=== PATIENT | female | born 1950 | race Caucasian/White ===

== ENCOUNTER 2017-12-01 06:46 | Emergency (ER) | payer OTHER ==
[~2017-12-01 06:46] MED LIST: BUDESONIDE 0.5MG/2ML AMPUL.NEB NEB ONE; IPRATROPIUM/ALBUTEROL SULFATE 3 ML AMPUL.NEB NEB ONE
[2017-12-01] MEDS ORDERED: methylPREDNISolone SOD SUCC 40 MG/ML VIAL IVP ONE (06:48)
[2017-12-01] MEDS ORDERED: methylPREDNISolone SOD SUCC 40 MG/ML VIAL ONE (06:49)
--- NOTE | 2017-12-01 06:54 | ED Physician Documentation ---
General Adult - HISTORIAN Historian: patient - HPI Stated Complaint: SOB Chief Complaint: General Adult Additional Information: Woke this morning wheezing. Took 10 mg prednisone and a Duoneb w/o improvement. Known asthmatic with attacks as often as once a year. Multiple hospitalizations but never intubated. No fever. Pulse ox 88% on ambient air on arrival. No other modifying factors or associated signs. - ROS CONST: denies: fever - PAST HX Past History: asthma - SOCIAL HX Smoking History: non-smoker - FAMILY HX Family History: No - REVIEWED ASSESSMENTS Nursing Assessment Reviewed: Yes Vitals Reviewed: Yes <SHEILA GOLDBERG - Last Filed: 12/01/17 07:07> - VITAL SIGNS Vital Signs: Vital Signs Temp Pulse Resp BP Pulse Ox 98.1 F 98 H 38 H 121/62 86 L 12/01/17 06:50 12/01/17 06:50 12/01/17 06:50 12/01/17 06:50 12/01/17 06:50 <Marlin Powers - Last Filed: 12/01/17 10:52> - PAST HX Allergies/Adverse Reactions: Allergies Allergy/AdvReac Type Severity Reaction Status Date / Time olanzapine [From Zyprexa] Allergy Unknown Unverified 02/26/13 13:19 Home Medications: Ambulatory Orders Medication Instructions Recorded Albuterol Sulfate [Proair Hfa] 2 inhalation IH Q 4-6 HRS PRN #1 03/05/13 each Citalopram Hydrobromide [Celexa] 20 mg PO DAILY u2 03/05/13 Lovastatin 40 mg PO DAILY u2 03/05/13 Ranitidine HCl [Acid Broadcast Designer] 150 mg PO DAILY 12/01/17 Progress - Progress Progress: 0700, care to CHLOÉ Palmer <SHEILA GOLDBERG - Last Filed: 12/01/17 07:07> - Progress Progress: 0815: Discussed results. Still awaiting CBC - no pneumonia on chest xray -no fever (not likely infectious) She is feeling much better and she would like to go home at this time. She reports she has oxygen at home. She has meds for her neb. She understands she qualifies to be hospitalized but she is not wishing to be admitted today. Risks of this were discussed DG <Marlin Powers - Last Filed: 12/01/17 10:52> ED Results Lab/Radiology - Orders Orders: ED Orders Category Date Time Status CHEST 2VIEW [RAD] Stat Exams 12/01/17 Ordered CBC/PLATELET/DIFF Routine Lab 12/01/17 Ordered CMP [CMP] Routine Lab 12/01/17 Ordered Budesonide [Pulmicort] Med 12/01/17 06:40 Once 0.5 mg NEB BID ONE Ipratropium/Albuterol Sulfate [Duoneb] Med 12/01/17 06:40 Once 3 ml NEB NOW ONE methylPREDNISolone SOD SUCC [Solu-MEDROL] Med 12/01/17 06:48 Once 40 mg IVP NOW ONE methylPREDNISolone SOD SUCC [Solu-MEDROL] Med 12/01/17 06:49 Discontinued 80 mg .ROUTE .STK-MED ONE <SHEILA GOLDBERG - Last Filed: 12/01/17 07:07> - Lab Results Lab Results: Lab Results 12/01/17 Unknown Sodium 138 mmol/L mmol/L (136-145) Potassium 4.1 mmol/L mmol/L (3.5-5.1) Chloride 109 mmol/L H mmol/L (98-107) Carbon Dioxide 23 mmol/L mmol/L (22-30) BUN 18 mg/dL H mg/dL (7-17) Creatinine 0.60 mg/dL mg/dL (0.52-1.04) Estimated Creat Clear 143 Est GFR ( Amer) > 60 (60 - ) Est GFR (Non-Af Amer) > 60 (60 - ) Glucose 93 mg/dL mg/dL (74-106) Calcium 8.5 mg/dL mg/dL (8.4-10.2) Total Bilirubin 0.2 mg/dL mg/dL (0.2-1.3) AST 22 U/L U/L (15-46) ALT 37 U/L U/L (13-69) Alkaline Phosphatase 78 U/L U/L (38-126) Total Protein 6.5 g/dL g/dL (6.3-8.2) Albumin 3.8 g/dL g/dL (3.5-5.0) - Radiology Radiology Impressions: PA and lateral chest Clinical history: Shortness of breath. Asthma exacerbation. Wheezing. Findings: Examination of the chest in PA and lateral views with no prior films for comparison demonstrates the lungs to be hyperinflated with diminished lung markings in the upper lung zones consistent with changes of emphysema. There is minimal apical pleural thickening bilaterally. Monitor leads superimpose the chest. Impression: 1. Emphysema. 2. No active disease. Electronically signed on Dec 01, 2017 7:33:27 AM CDT by: Andrew Lees - Orders Orders: ED Orders Category Date Time Status CHEST 2VIEW [RAD] Stat Exams 12/01/17 Taken CBC REF Routine Lab 12/01/17 Received CMP [CMP] Routine Lab 12/01/17 Completed Budesonide [Pulmicort] Med 12/01/17 06:40 Discontinued 0.5 mg NEB BID ONE Ipratropium/Albuterol Sulfate [Duoneb] Med 12/01/17 06:40 Discontinued 3 ml NEB NOW ONE methylPREDNISolone SOD SUCC [Solu-MEDROL] Med 12/01/17 06:59 Discontinued 40 mg IM NOW ONE methylPREDNISolone SOD SUCC [Solu-MEDROL] Med 12/01/17 06:48 Discontinued 40 mg IVP NOW ONE methylPREDNISolone SOD SUCC [Solu-MEDROL] Med 12/01/17 06:49 Discontinued 80 mg .ROUTE .STK-MED ONE <Marlin Powers - Last Filed: 12/01/17 10:52> General Adult Physical Exam - PHYSICAL EXAM GENERAL APPEARANCE: severe distress EENT: eye inspection normal, ENT inspection normal NECK: normal inspection, supple RESPIRATORY: wheezes (high pitched. Markedly decreased air movement throughout) CVS: reg rate & rhythm, heart sounds normal, no murmur ABDOMEN: soft, normal bowel sounds BACK: normal inspection SKIN: warm/dry, normal color NEURO: CN's nml as tested, motor nml, sensation nml, cognition normal <SHEILA GOLDBERG Last Filed: 12/01/17 07:07> - PHYSICAL EXAM GENERAL APPEARANCE: no distress EENT: ENT inspection normal RESPIRATORY: no resp distress, wheezes (high pitched. Markedly decreased air movement throughout - right upper lobe with wheeze clearing in other lobes ), other (inspiratory volume improved ) CVS: reg rate & rhythm ABDOMEN: soft SKIN: warm/dry NEURO: CN's nml as tested <Marlin Powers - Last Filed: 12/01/17 10:52> Discharge <SHEILA GOLDBERG Filed: 12/01/17 07:07> Comments: 1. Duoneb as prescribed for neb treatments at home every 6 hours 2. Use home oxygen 3. Prednisone taper 20 mg x 4 days 10 mg by mouth x 4 days and 5 mg x 4 days 4. See PCP in 2-4 days 5. Return to ER for any increase shortness of breath or other concerns Decision to Admit: NO Date of Decison to Admit: 12/01/17 Decision Time: 08:26 <Marlin Powers - Last Filed: 12/01/17 10:52> Clincal Impression: Emphysema lung Qualifiers: Emphysema type: unilateral Qualified Code(s): J43.0 - Unilateral pulmonary emphysema [MacLeod's syndrome] Referrals: Astrid Urrutia MD [Primary Care Provider] - 2 Days Disposition: 01 HOME, SELF-CARE
[2017-12-01] MEDS ORDERED: methylPREDNISolone SOD SUCC 40 MG/ML VIAL IM ONE (06:59)
[2017-12-01 07:16] LABS: eGFR (Non-African) > 60
[2017-12-01] MEDS ORDERED: IPRATROPIUM/ALBUTEROL SULFATE 3 ML AMPUL.NEB NEB ONE (07:51)
--- NOTE | 2017-12-01 08:34 | Diagnostic Imaging Report ---
SHEILA GOLDBERG [facility] [address] [facility] [address] [address] Report Submission Date: Dec 01, 2017 7:33:27 AM CDT Patient Study Name: KALIN RUIZ Date: Dec 01, 2017 6:56:36 AM CDT Modality Type: DX Gender: F Description: CHEST : 48 Institution: [facility] Physician: SHEILA GOLDBERG PA and lateral chest Clinical history: Shortness of breath. Asthma exacerbation. Wheezing. Findings: Examination of the chest in PA and lateral views with no prior films for comparison demonstrates the lungs to be hyperinflated with diminished lung markings in the upper lung zones consistent with changes of emphysema. There is minimal apical pleural thickening bilaterally. Monitor leads superimpose the chest. Impression: 1. Emphysema. 2. No active disease. Electronically signed on Dec 01, 2017 7:33:27 AM CDT by: Andrew ROCHA
[2017-12-01 08:51] LABS: BASO % 0.6 % (0.0-1.5); EOS % 7.3 % (0.0-6.8); LYMPH ABS # 3.45 thou/uL (0.60-4.00); MCH. 31.4 pg (28.0-34.0); MCV 92.9 fL (80.0-100.0); MONOCYTE % 7.1 % (0.0-11.0); PLATELET COUNT 272 thou/uL (130-400)
[2017-12-01 09:01] VITALS: BP 111/56
== END 2017-12-01 08:50 | disposition home or self-care (01) ==
LOC: ED 06:46
DX: J43.0 Unilateral pulmonary emphysema [MacLeod's syndrome] (principal)
CPT/HCPCS: 71046; 80053; 85025; J2920; J7626; 94640; 96372; 96374; J1030; S1016

== ENCOUNTER 2017-12-02 05:53 | Inpatient (IN) | payer OTHER ==
[2017-12-02] MEDS ORDERED: BUDESONIDE 0.5MG/2ML AMPUL.NEB NEB ONE ×2 (05:58→06:00)
--- NOTE | 2017-12-02 06:11 | ED Physician Documentation ---
Asthma - HISTORIAN Historian: patient - HPI Stated Complaint: resp distress / COPD Chief Complaint: Upper Respiratory Symptoms Onset: other (several days ago ) Duration: continues in ED Initiating Event: out of meds Associated Symptoms:: trouble breathing, shortness of breath, hurts to breath, chest discomfort, chest tightness. denies: fever, sweating, productive cough, bloody sputum, chest pain, chest pressure Current Asthma Therapy: other (she has ipratroprium at home. Out of steroid inhaler ) Further Comments: yes (She was seen in ER for cough and wheeze. Refused admission. States this am a coughing spell made her very short on air. She is feeling tight and having shortness of air. She is slightly improved after her duoneb in ambulance. She has no other new complaints.) - ROS CONST: no problems - PAST HX Asthma: frequent attacks Lung Disease: COPD DVT/PE Risk Factors: none - SOCIAL HX Smoking History: cigarettes Alcohol Use: none Drug Use: none - VITAL SIGNS Vital Signs: Vital Signs Temp Pulse Resp BP Pulse Ox 111/56 12/01/17 08:50 - REVIEWED ASSESSMENTS Nursing Assessment Reviewed: Yes Vitals Reviewed: Yes <Marlin Powers - Last Filed: 12/02/17 07:09> - FAMILY HX Family History: other (unk) - VITAL SIGNS Vital Signs: Vital Signs Temp Pulse Resp BP Pulse Ox 98.2 F 64 24 157/73 100 12/02/17 07:01 12/02/17 07:01 12/02/17 07:01 12/02/17 07:01 12/02/17 07:01 <Axel Chacon - Last Filed: 12/02/17 15:09> - PAST HX Allergies/Adverse Reactions: Allergies Allergy/AdvReac Type Severity Reaction Status Date / Time olanzapine [From Zyprexa] Allergy Unknown Verified 12/02/17 06:49 Home Medications: Ambulatory Orders Medication Instructions Recorded Albuterol Sulfate [Proair Hfa] 2 inhalation IH Q 4-6 HRS PRN #1 03/05/13 each Citalopram Hydrobromide [Celexa] 20 mg PO DAILY u2 03/05/13 Lovastatin 40 mg PO DAILY u2 03/05/13 Ranitidine HCl [Acid Radial Arm Saw Operator] 150 mg PO DAILY 12/01/17 Progress - Progress Progress: 0625: inspiration is improved. mild decrease in wheezing. She is able to speak with oxygen on only. States the shortness of breath has decreased DG 0635: breathing effort is improved. Decreased shortness of air. Wheezing is improved. Air movement is improved. She states herself that the shortness of breath started to become more severe around 5 am DG 0705: care turned over to Dr Zarate DG <Marlin Powers - Last Filed: 12/02/17 07:09> - Progress Progress: admit to Dr. Melvin, COPD. <Axel Chacon - Last Filed: 12/02/17 15:09> ED Results Lab/Radiology - Radiology Radiology Impressions: Examination: Portable chest History: Evaluate lungs. SHORTNESS OF BREATH, COUGH (Hx) Comparison exam: 01 December 2017 Findings: Single view of the chest demonstrates a normal cardiac and mediastinal silhouette. Lung lal without focal infiltrate. No blunting of the costophrenic margins. Osseous structures are appropriate for age. Impression: No acute pulmonary process. Electronically signed on Dec 02, 2017 6:18:42 AM CDT by: Maxx Estrada - Orders Orders: ED Orders Category Date Time Status Assess pulse oximetry Q1H Care 12/02/17 05:58 Active CHEST 1VIEW [RAD] Stat Exams 12/02/17 Ordered CBC/PLATELET/DIFF Routine Lab 12/02/17 Ordered CMP Routine Lab 12/02/17 Ordered CREATINE KINASE Routine Lab 12/02/17 Ordered PT-INR Routine Lab 12/02/17 Ordered Budesonide [Pulmicort] Med 12/02/17 09:00 Ordered 0.5 mg NEB BID Oxygen Daily Oxygen 12/02/17 06:00 Ordered <Marlin Powers - Last Filed: 12/02/17 07:09> - Lab Results Lab Results: Lab Results 12/02/17 12/02/17 12/02/17 06:15 06:15 06:15 PT 10.1 Seconds Seconds (9.4-11.6) INR 0.96 (0.9-1.2) Sodium 139 mmol/L mmol/L (136-145) Potassium 4.1 mmol/L mmol/L (3.5-5.1) Chloride 107 mmol/L mmol/L (98-107) Carbon Dioxide 23 mmol/L mmol/L (22-30) BUN 17 mg/dL mg/dL (7-17) Creatinine 0.60 mg/dL mg/dL (0.52-1.04) Est GFR ( Amer) > 60 (60 - ) Est GFR (Non-Af Amer) > 60 (60 - ) Glucose 100 mg/dL mg/dL (74-106) Calcium 8.9 mg/dL mg/dL (8.4-10.2) Total Bilirubin 0.1 mg/dL L mg/dL (0.2-1.3) AST 18 U/L U/L (15-46) ALT 34 U/L U/L (13-69) Alkaline Phosphatase 82 U/L U/L (38-126) Creatine Kinase 70 U/L U/L (30-135) NT-Pro-B Natriuret Pep 118.4 pg/mL pg/mL (15.0-125.0) Total Protein 6.8 g/dL g/dL (6.3-8.2) Albumin 3.9 g/dL g/dL (3.5-5.0) - Orders Orders: ED Orders Category Date Time Status Assess pulse oximetry Q1H Care 12/02/17 05:58 Active CHEST 1VIEW [RAD] Stat Exams 12/02/17 Completed BNP [NT-proBNP] Stat Lab 12/02/17 06:15 Completed CBC REF Routine Lab 12/02/17 06:15 Received CMP Routine Lab 12/02/17 06:15 Completed CREATINE KINASE Routine Lab 12/02/17 06:15 Completed PT-INR Routine Lab 12/02/17 06:15 Completed 0.9 % Sodium Chloride [Normal Saline] 1,000 ml Med 12/02/17 06:25 Discontinued IV NOW Budesonide [Pulmicort] Med 12/02/17 05:58 Discontinued 0.5 mg NEB .STK-MED ONE Budesonide [Pulmicort] Med 12/02/17 09:00 Discontinued 0.5 mg NEB BID Budesonide [Pulmicort] Med 12/02/17 06:00 Discontinued 0.5 mg NEB NOW ONE Ipratropium/Albuterol Sulfate [Duoneb] Med 12/02/17 06:38 Discontinued 3 ml NEB NOW ONE Oxygen Daily Oxygen 12/02/17 06:00 Ordered Transfer Routine Transfer 12/02/17 Ordered <Axel Chacon - Last Filed: 12/02/17 15:09> Asthma Physical Exam - EXAM General Appearance: no acute distress, severe distress EENT: eye inspection normal, ENT inspection normal Respiratory: respiratory distress, splinting, wheezes, rhonchi, resp. fatigue (unable to speak 3 words. - post pulmicort improved with speaking and distress less ) CVS: reg rate & rhythm, heart sounds normal, equal pulses, no murmur Abdomen: non-tender, nml bowel sounds Skin: color nml, no rash Extremities: non-tender, normal range of motion, no evidence of injury, no edema Neuro/Psych: oriented x3, neuro intact, mood/affect nml <Marlin Powers - Last Filed: 12/02/17 07:09> Discharge Decision to Admit: [id number] Date of Decison to Admit: 12/02/17 Decision Time: 06:51 <Marlin Powers - Last Filed: 12/02/17 07:09> <Axel Chacon - Last Filed: 12/02/17 15:09> Clincal Impression: Severe chronic obstructive pulmonary disease Condition: Fair Disposition: ADMITTED INPATIENT
[2017-12-02] MEDS ORDERED: 0.9 % SODIUM CHLORIDE 1,000 ML IV ONE (06:25)
[2017-12-02] MEDS ORDERED: IPRATROPIUM/ALBUTEROL SULFATE 3 ML AMPUL.NEB NEB ONE (06:38)
--- NOTE | 2017-12-02 06:53 | Diagnostic Imaging Report ---
HUBERT BOBBY [facility] [address] [facility] [address] [place], [place]. [address] Report Submission Date: Dec 02, 2017 6:18:42 AM CDT Patient Study Name: KALIN RUIZ Date: Dec 02, 2017 5:58:13 AM CDT Modality Type: DX Gender: F Description: CHEST : 48 Institution: [facility] Physician: HUBERT BOBBY Examination: Portable chest History: Evaluate lungs. SHORTNESS OF BREATH, COUGH (Hx) Comparison exam: 01 December 2017 Findings: Single view of the chest demonstrates a normal cardiac and mediastinal silhouette. Lung lal without focal infiltrate. No blunting of the costophrenic margins. Osseous structures are appropriate for age. Impression: No acute pulmonary process. Electronically signed on Dec 02, 2017 6:18:42 AM CDT by: Maxx ROCHA
[2017-12-02 06:55] LABS: eGFR (Non-African) > 60
[2017-12-02 08:02] LABS: BASO % 0.1 % (0.0-1.5); EOS % 0.3 % (0.0-6.8); LYMPH ABS # 3.67 thou/uL (0.60-4.00); MCH. 30.7 pg (28.0-34.0); MCV 93.1 fL (80.0-100.0); MONOCYTE % 5.9 % (0.0-11.0); MONOCYTE ABS # 0.93 thou/uL (0.00-0.90); PLATELET COUNT 272 thou/uL (130-400)
[2017-12-02] MEDS ORDERED: methylPREDNISolone SOD SUCC 80 MG in 0.9 % SODIUM CHLORIDE 100 ML IV SCH (08:03)
[2017-12-02] MEDS ORDERED: methylPREDNISolone SOD SUCC 40 MG/ML VIAL ONE (08:17)
[2017-12-02] MEDS ORDERED: 0.9 % SODIUM CHLORIDE 100 ML IV ONE (08:18)
[2017-12-02] MEDS ORDERED: ALBUTEROL SULFATE 2.5 MG/3 ML AMPUL.NEB NEB PRN (08:39)
[2017-12-02] MEDS: CITALOPRAM HYDROBROMIDE 20 MG TABLET PO SCH (08:42)
[2017-12-02] MEDS: SALINE FLUSH 10 ML DISP.SYRIN IV SCH ×2 (08:43→21:07)
[2017-12-02] MEDS ORDERED: BUDESONIDE 0.5MG/2ML AMPUL.NEB NEB SCH (09:00)
--- NOTE | 2017-12-02 09:05 | History and Physical Report ---
History of Present Illnes - History of Present Illness Reason for Visit: dyspnea History of Present Illness: 67yo white female who developed some increase SOB and dyspnea. Douglass been wheezing. Has oxygen at home at [facility] at 2 liters. Had to start using oxygen during the day. Has allergies and believes that it started the problem. Patient states that she has a cough, productive of some yellow phlegm. No fever or chills noted. - Past Medical History Pulmonary: Asthma, COPD, Sleep Apnea - Past Surgical History Past Surgical History: Appendectomy, Other (BTL) - Past Social History Smoke: <1 pack per day (2 ppd) Alcohol: None Drugs: None Lives: With Family Domestic Violence: Negative - Health Maintenance Health Maintenance: Pneumococcal Vaccine Influenza Vaccine: No Pneumonia Vaccine: Yes Resuscitation Status: full code Review of Systems - Review of Systems Constitutional: negative: Fever, Chills Eyes: negative: vision change, conjunctivae inflammation, eyelid inflammation ENT: negative: Ear Pain, Ear Discharge, Nose Pain, Nose Discharge, Nose Congestion, Mouth Pain, Throat Pain Respiratory: Cough, Shortness of Breath, SOB with Excertion, Sputum, Wheezing. negative: Hemoptysis, Pleuritic Pain Cardiovascular: negative: Chest Pain, Palpitations, Orthopnea Gastrointestinal: negative: Nausea, Vomiting, Abdominal Pain, Melena, Hematochezia Genitourinary: negative: Dysuria, Frequency, Incontinence, Hematuria Musculoskeletal: negative: Neck Pain, Shoulder Pain Skin: negative: Rash Neurological: negative: Weakness, Numbness, Incoordination, Change in Speech - Medications/Allergies Allergies/Adverse Reactions: Allergies Allergy/AdvReac Type Severity Reaction Status Date / Time olanzapine [From Zyprexa] Allergy Unknown Verified 12/02/17 06:49 Current Inpatient Medications: Current Inpatient Medications Albuterol Sulfate (Ventolin) 2.5 mg NEB Q2H PRN PRN Reason: Wheezing Stop: 12/08/17 23:59 Albuterol/Ipratropium (Duoneb) 3 ml NEB Q4H [facility] Citalopram Hydrobromide (Celexa) 20 mg PO DAILY [facility] Last Admin: 12/02/17 08:42 Dose: 20 mg Famotidine (Pepcid) 20 mg PEG 0700 [facility] Methylprednisolone Sodium Succinate 80 mg/ Sodium Chloride 101.28 mls @ 101.28 mls/hr IV Q8H [facility] Stop: 12/08/17 23:59 Last Admin: 12/02/17 08:42 Dose: 101.28 mls/hr Simvastatin (Zocor) 20 mg PO HS [facility] Sodium Chloride (Normal Saline Flush) 3 ml IV BID [facility] Last Admin: 12/02/17 08:43 Dose: 3 ml Exam - Exam Vital Signs: Vital Signs (72 hours) 12/01/17 12/02/17 12/02/17 08:50 05:58 06:58 Temperature Pulse Rate [ Right Pulse ox] Respiratory Rate Blood Pressure 111/56 Blood Pressure 111/56 [Left Arm] O2 Sat by Pulse 100 100 Oximetry 12/02/17 12/02/17 12/02/17 07:00 07:01 07:50 Temperature 98.2 F 98.2 F Pulse Rate [ 64 109 H Right Pulse ox] Respiratory 24 26 H Rate Blood Pressure Blood Pressure 157/73 105/62 [Left Arm] O2 Sat by Pulse 96 100 98 Oximetry General: Alert, Oriented to Person, Oriented to Place, Oriented to Time, Cooperative HEENT: Atraumatic, PERRLA, EOMI, Mouth Mucous membr. moist/[place], Nose Mucous membr. moist/[place] Neck: Normal Range of Motion Carotids: WNL Thyroid: WNL Lungs: Speaks full Sentences, Wheezes, Rhonchi, Decreased Air Movement Cardiovascular: Normal S1, Normal S2, No murmurs, Tachycardia Abdomen: Normal bowel sounds, Soft, No tenderness, No hepatospenomegaly, No masses Integumentary: Normal, [place], Warm, Dry Extremities: No clubbing, No cyanosis, No edema, Normal pulses, No tenderness/swelling Neurological: Normal gait, Normal speech, Strength Equal Bilat, Normal tone, Sensation intact, Cranial nerves 3-12 NL, Reflexes 2+ Psych/Mental Status: Mental status NL, Mood NL, Appropriate Affect, Intact Judgment - Laboratory Results Laboratory Results: Laboratory Results 12/02/17 12/02/17 12/02/17 06:15 06:15 06:15 WBC Comment RBC Hemoglobin (Send Out) Hct (Send Out) MCV (Send Out) MCH MCHC (Send Out) RDW Coeff of [place] Plt Count Absolute Lymphs (auto) Absolute Monos (auto) Absolute Basos (auto) Neutrophils % Absolute Neutrophils Lymphocytes Monocytes Absolute Eosinophils Basophilia % Eosinophil Count PT 10.1 INR 0.96 Sodium 139 Potassium 4.1 Chloride 107 Carbon Dioxide 23 BUN 17 Creatinine 0.60 Est GFR ( Amer) > 60 Est GFR (Non-Af Amer) > 60 Glucose 100 Calcium 8.9 Total Bilirubin 0.1 L AST 18 ALT 34 Alkaline Phosphatase 82 Creatine Kinase 70 NT-Pro-B Natriuret Pep 118.4 Total Protein 6.8 Albumin 3.9 12/02/17 06:15 WBC Comment 15.77 H RBC 4.62 Hemoglobin (Send Out) 14.2 Hct (Send Out) 43.0 MCV (Send Out) 93.1 MCH 30.7 MCHC (Send Out) 33.0 RDW Coeff of [place] 13.4 Plt Count 272 Absolute Lymphs (auto) 3.67 Absolute Monos (auto) 0.93 H Absolute Basos (auto) 0.02 Neutrophils % 70.4 Absolute Neutrophils 11.10 H Lymphocytes 23.3 Monocytes 5.9 Absolute Eosinophils 0.05 Basophilia % 0.1 Eosinophil Count 0.3 PT INR Sodium Potassium Chloride Carbon Dioxide BUN Creatinine Est GFR ( Amer) Est GFR (Non-Af Amer) Glucose Calcium Total Bilirubin AST ALT Alkaline Phosphatase Creatine Kinase NT-Pro-B Natriuret Pep Total Protein Albumin Assessment/Plan - Assessment/Plan (1) Acute exacerbation of COPD with asthma Status: Chronic Assessment: Patient will be started on IV steroids, regular nebulized treatments, and antibiotic therapy for possible early infection. (2) Tobacco dependence Status: Chronic Assessment: Patient is not want a nicotine patch this time. (3) Depressive disorder Status: Acute Assessment: Continue home medications. (4) GERD without esophagitis Status: Chronic Assessment: Continue home medications. (5) Insomnia Status: Chronic VTE Assessment - RISK FACTOR SCORE VTE RISK FACTOR SCORES: AGE OVER 60 YEARS, ACUTE RESPIRATORY FAILURE/SEVERE COPD - RISK VTE MODERATE RISK: SCORE OF 2 (RISK PROXIMAL DVT 2-4%) PROPHYAXIS NEEDED
[2017-12-02 10:01] VITALS: BMI 31.7
[2017-12-02] MEDS: IPRATROPIUM/ALBUTEROL SULFATE 3 ML AMPUL.NEB NEB SCH ×4 (11:20→22:33)
[2017-12-02] MEDS: AZITHROMYCIN 500 MG in 0.9 % SODIUM CHLORIDE 250 ML IV SCH (12:30)
[2017-12-02] MEDS ORDERED: LEVOFLOXACIN 500MG/D5W 100ML 500 MG in PREMIX BAG 1 BAG IV SCH (13:10)
[2017-12-02] MEDS: NICOTINE 14mg PATCH.TD24 TD SCH (13:45)
[2017-12-02] MEDS: DEXTROSE 5% IV SCH ×4 (16:15→22:34)
[2017-12-02] MEDS: METHYLPREDNISOLONE SOD SUCC IV SCH ×4 (16:15→22:34)
[2017-12-02] MEDS: WATER IV SCH ×4 (16:15→22:34)
[2017-12-02] MEDS ORDERED: LEVOFLOXACIN 500MG/D5W 100ML 100 ML IV ONE (17:32)
[2017-12-02] MEDS: LEVOFLOXACIN 500MG/D5W 100ML 500 MG in PREMIX BAG 1 BAG IV SCH (17:41)
[2017-12-02] MEDS: SIMVASTATIN 20 MG TABLET PO SCH (20:08)
[2017-12-02] MEDS: ACETAMINOPHEN 500 MG TABLET PO PRN (20:11)
[2017-12-02] MEDS ORDERED: MELATONIN 3 MG TABLET PO SCH (21:00)
[2017-12-02] MEDS: GUAIFENESIN/CODEINE 10 ML S/F LIQUID DOSE CUP PO PRN (22:34)
[2017-12-03] MEDS: IPRATROPIUM/ALBUTEROL SULFATE 3 ML AMPUL.NEB NEB SCH ×6 (03:24→23:00)
[2017-12-03] MEDS: GUAIFENESIN/CODEINE 10 ML S/F LIQUID DOSE CUP PO PRN (03:27)
[2017-12-03] MEDS: DEXTROSE 5% IV SCH ×6 (06:40→20:35)
[2017-12-03] MEDS: WATER IV SCH ×6 (06:40→20:35)
[2017-12-03] MEDS: METHYLPREDNISOLONE SOD SUCC IV SCH ×6 (06:40→20:35)
[2017-12-03] MEDS: FAMOTIDINE 20 MG TABLET PEG SCH (06:40)
[2017-12-03 07:25] LABS: eGFR (Non-African) > 60
[2017-12-03] MEDS ORDERED: LEVOFLOXACIN 500MG/D5W 100ML 500 MG in PREMIX BAG 1 BAG IV SCH (09:00)
[2017-12-03] MEDS: NICOTINE 14mg PATCH.TD24 TD SCH (09:10)
[2017-12-03] MEDS: CITALOPRAM HYDROBROMIDE 20 MG TABLET PO SCH (09:10)
[2017-12-03] MEDS: SALINE FLUSH 10 ML DISP.SYRIN IV SCH ×2 (09:10→20:35)
[2017-12-03] MEDS: ACETAMINOPHEN 500 MG TABLET PO PRN ×2 (09:29→15:11)
[2017-12-03] MEDS: AZITHROMYCIN 500 MG in 0.9 % SODIUM CHLORIDE 250 ML IV SCH (10:53)
[2017-12-03 16:21] LABS: BASO % 0.1 % (0.0-1.5); EOS % 0.4 % (0.0-6.8); LYMPH ABS # 1.37 thou/uL (0.60-4.00); MCV 93.9 fL (80.0-100.0); MONOCYTE % 3.1 % (0.0-11.0); MONOCYTE ABS # 0.43 thou/uL (0.00-0.90); PLATELET COUNT 241 thou/uL (130-400)
[2017-12-03] MEDS ORDERED: ZOLPIDEM TARTRATE 5 MG TABLET PO PRN (17:28)
[2017-12-03] MEDS ORDERED: LEVOFLOXACIN 500MG/D5W 100ML 100 ML IV ONE (17:48)
[2017-12-03] MEDS: LEVOFLOXACIN 500MG/D5W 100ML 500 MG in PREMIX BAG 1 BAG IV SCH (18:00)
[2017-12-03] MEDS: SIMVASTATIN 20 MG TABLET PO SCH (20:24)
[2017-12-03] MEDS ORDERED: methylPREDNISolone SOD SUCC 40 MG/ML VIAL ONE (20:25)
[2017-12-04] MEDS: IPRATROPIUM/ALBUTEROL SULFATE 3 ML AMPUL.NEB NEB SCH ×5 (04:55→21:07)
[2017-12-04] MEDS: FAMOTIDINE 20 MG TABLET PEG SCH (06:09)
[2017-12-04] MEDS: SALINE FLUSH 10 ML DISP.SYRIN IV SCH ×2 (10:02→20:17)
[2017-12-04] MEDS: NICOTINE 14mg PATCH.TD24 TD SCH (10:02)
[2017-12-04] MEDS: CITALOPRAM HYDROBROMIDE 20 MG TABLET PO SCH (10:02)
[2017-12-04] MEDS: DEXTROSE 5% IV SCH ×4 (10:13→20:18)
[2017-12-04] MEDS: WATER IV SCH ×4 (10:13→20:18)
[2017-12-04] MEDS: METHYLPREDNISOLONE SOD SUCC IV SCH ×4 (10:13→20:18)
[2017-12-04] MEDS: AZITHROMYCIN 500 MG in 0.9 % SODIUM CHLORIDE 250 ML IV SCH (11:19)
[2017-12-04] MEDS: ACETAMINOPHEN 500 MG TABLET PO PRN ×2 (13:41→20:16)
[2017-12-04] MEDS ORDERED: LEVOFLOXACIN 500MG/D5W 100ML 100 ML IV ONE (16:19)
[2017-12-04] MEDS: LEVOFLOXACIN 500MG/D5W 100ML 500 MG in PREMIX BAG 1 BAG IV SCH (18:28)
[2017-12-04] MEDS: SIMVASTATIN 20 MG TABLET PO SCH (20:15)
[2017-12-04] MEDS ORDERED: ONDANSETRON HCL 4 MG TAB.RAPDIS PO PRN (20:16)
[2017-12-04] MEDS ORDERED: ZOLPIDEM TARTRATE 5 MG TABLET PO SCH (21:00)
[2017-12-05] MEDS: FAMOTIDINE 20 MG TABLET PEG SCH (06:04)
[2017-12-05] MEDS: NICOTINE 14mg PATCH.TD24 TD SCH (09:47)
[2017-12-05] MEDS: CITALOPRAM HYDROBROMIDE 20 MG TABLET PO SCH (09:47)
[2017-12-05] MEDS: IPRATROPIUM/ALBUTEROL SULFATE 3 ML AMPUL.NEB NEB SCH (09:48)
[2017-12-05 10:30] VITALS: BP 102/60
[2017-12-05] MEDS: AZITHROMYCIN 500 MG in 0.9 % SODIUM CHLORIDE 250 ML IV SCH (11:46)
[2017-12-05] MEDS: WATER IV SCH ×2 (11:47)
[2017-12-05] MEDS: DEXTROSE 5% IV SCH ×2 (11:47)
[2017-12-05] MEDS: METHYLPREDNISOLONE SOD SUCC IV SCH ×2 (11:47)
[2017-12-05] MEDS: SALINE FLUSH 10 ML DISP.SYRIN IV SCH (11:49)
--- NOTE | 2017-12-05 13:45 | Discharge Summary ---
Discharge Summary - Discharge Sumary Condition at Discharge: Stable Home Medications: Ambulatory Orders Medication Instructions Recorded Albuterol Sulfate [Proair Hfa] 2 inhalation IH Q 4-6 HRS PRN #1 03/05/13 each Citalopram Hydrobromide [CELEXA] 20 mg PO DAILY u2 03/05/13 Lovastatin 40 mg PO DAILY u2 03/05/13 Ranitidine HCl [Acid Wastewater Supervisor] 150 mg PO DAILY 12/01/17 Azithromycin 250 mg PO D #3 tablet 12/05/17 Budesonide 0.5 mg IH BID #60 ampul.neb 12/05/17 Levofloxacin [Levaquin] 500 mg PO D #7 tablet 12/05/17 Melatonin 5 - 10 mg PO HS PRN #60 tablet 12/05/17 NICOTINE 14mg [HABITROL 14mg] 1 patch TD DAILY patch.td24 12/05/17 Prednisone 10 mg PO DIRECTED #36 tablet 12/05/17 Consultations this Visit: None Procedures this Visit: None Allergies/Adverse Reactions: Allergies Allergy/AdvReac Type Severity Reaction Status Date / Time olanzapine [From Zyprexa] Allergy Unknown Verified 12/02/17 06:49 Discharge Summary: Patient was started on high flow nebulization treatments to four hours are doing and along with IV steroids. Within 12 hours patient breathing status has improved quite a bit but she remained short of breath and dyspnea with exertion. Patient did developed a productive cough of some green to yellow phlegm and was started on antibiotic therapy for possible developing bronchitis. Chest x-ray did not show any evidence of an infiltrate or pneumonia. Patient WBC count did drop from 15,000 to 13,000. Patient did developed some mild hyperglycemia related to his steroid use. Patient did have some problems with insomnia during her hospitalization. Patient was started on melatonin and switched to zolpidem. At the time of dismissal patient was breathing much better. There is just a few wheezes noted was fourth expiration. Patient did drop her oxygen saturation down to 87-88% on room air with ambulation. With oxygen it remained at 90 to 93%. It was felt that the patient was going to need some continuous oxygen at home at least for a short period of time. Patient did feel a little bit uneasy about going home and possibly pain at home by herself. Due to the patient COPD and change in oxygenation it was felt that home health might be beneficial for her. This was subsequently arranged. - Final Diagnosis (1) Acute exacerbation of COPD with asthma Problems: improved. Will continue on a prednisone taper. (2) Insomnia Problems: Melatonin 5-10mg q HS PRN (3) Tobacco dependence Problems: encouraged to stop smoking. Was given script for nicotine patches (4) Depressive disorder Problems: stable (5) GERD without esophagitis Problems: stable
--- NOTE | 2017-12-05 13:49 | Inpatient Progress Note ---
Subjective - Required Recertification Statement I anticipate X number of days because-include discharge plan: 1 - Review of Systems Events since last encounter: Patient states that she does continue to make some improvement with her breathing. Patient is starting to ambulate a little bit easier. Patient cough is about the same. Patient denies any chest pain or chest pressure. Patient stated her main problem at this time seemed to be her insomnia and lack of sleep Objective - Exam Vitals and I&O: Vital Signs Temp 98.7 F 12/05/17 10:26 Pulse 87 12/05/17 10:26 Resp 16 12/05/17 10:58 BP 102/60 12/05/17 10:26 Pulse Ox 90 L 12/05/17 10:57 Intake & Output 12/04/17 12/05/17 12/05/17 23:59 11:59 23:59 Intake Total 1490 530 Balance 1490 530 Intake: IV 690 10 Right Hand 10 left habd 690 Oral 800 520 Other: Voiding Method Toilet Toilet # Voids 1 3 General: Alert, Oriented to Person, Oriented to Place, Oriented to Time, Cooperative, No acute distress Lungs: Normal air movement, Speaks full Sentences, Wheezes (mild with expiratio n). No: Rales, Rhonchi Cardiovascular: Regular rate, Normal S1, Normal S2, No murmurs Abdomen: Normal bowel sounds, Soft, No tenderness Extremities: No clubbing, No cyanosis, No edema Skin: Normal, [place], Warm, Dry Neurological: Normal gait Psych/Mental Status: Mental status NL, Mood NL, Intact Judgment - Results Results: Laboratory Results WBC Comment 13.81 thou/uL (4.00-12.00) H 12/03/17 06:35 RBC 4.44 mil/uL (3.90-5.20) 12/03/17 06:35 Hemoglobin (Send Out) 14.2 g/dL (11.5-16.0) 12/03/17 06:35 Hct (Send Out) 41.7 % (34.5-46.5) 12/03/17 06:35 MCV (Send Out) 93.9 fL (80.0-100.0) 12/03/17 06:35 MCH 32.0 pg (28.0-34.0) 12/03/17 06:35 MCHC (Send Out) 34.1 g/dL (30.0-36.0) 12/03/17 06:35 RDW Coeff of Flaquito 13.4 % (11.3-14.7) 12/03/17 06:35 Plt Count 241 thou/uL (130-400) 12/03/17 06:35 Absolute Lymphs (auto) 1.37 thou/uL (0.60-4.00) 12/03/17 06:35 Absolute Monos (auto) 0.43 thou/uL (0.00-0.90) 12/03/17 06:35 Absolute Basos (auto) 0.01 thou/uL (0.00-0.50) 12/03/17 06:35 Neutrophils % 86.5 % (39.0-79.0) H 12/03/17 06:35 Absolute Neutrophils 11.95 thou/uL (1.50-7.70) H 12/03/17 06:35 Lymphocytes 9.9 % (16.0-50.0) L 12/03/17 06:35 Monocytes 3.1 % (0.0-11.0) 12/03/17 06:35 Absolute Eosinophils 0.06 thou/uL (0.00-0.60) 12/03/17 06:35 Basophilia % 0.1 % (0.0-1.5) 12/03/17 06:35 Eosinophil Count 0.4 % (0.0-6.8) 12/03/17 06:35 PT 10.1 Seconds (9.4-11.6) 12/02/17 06:15 INR 0.96 (0.9-1.2) 12/02/17 06:15 Sodium 138 mmol/L (136-145) 12/03/17 06:35 Potassium 3.8 mmol/L (3.5-5.1) 12/03/17 06:35 Chloride 106 mmol/L (98-107) 12/03/17 06:35 Carbon Dioxide 23 mmol/L (22-30) 12/03/17 06:35 BUN 13 mg/dL (7-17) 12/03/17 06:35 Creatinine 0.50 mg/dL (0.52-1.04) L 12/03/17 06:35 Estimated Creat Clear 189 12/03/17 06:35 Est GFR ( Amer) > 60 (60-) 12/03/17 06:35 Est GFR (Non-Af Amer) > 60 (60-) 12/03/17 06:35 Glucose 159 mg/dL (74-106) H 12/03/17 06:35 Calcium 8.9 mg/dL (8.4-10.2) 12/03/17 06:35 Total Bilirubin 0.2 mg/dL (0.2-1.3) 12/03/17 06:35 AST 20 U/L (15-46) 12/03/17 06:35 ALT 31 U/L (13-69) 12/03/17 06:35 Alkaline Phosphatase 68 U/L (38-126) 12/03/17 06:35 Creatine Kinase 70 U/L (30-135) 12/02/17 06:15 NT-Pro-B Natriuret Pep 118.4 pg/mL (15.0-125.0) 12/02/17 06:15 Total Protein 6.5 g/dL (6.3-8.2) 12/03/17 06:35 Albumin 3.9 g/dL (3.5-5.0) 12/03/17 06:35 Assessment/Plan - Assessment/Plan (1) Acute exacerbation of COPD with asthma Status: Acute Assessment: improved, will start to taper steroids (2) Insomnia Status: Chronic Assessment: will try to increase ambien (3) Tobacco dependence Status: Chronic (4) Depressive disorder Status: Chronic Assessment: stable (5) GERD without esophagitis Status: Chronic
--- NOTE | 2017-12-05 13:49 | Inpatient Progress Note ---
Subjective - Required Recertification Statement I anticipate X number of days because-include discharge plan: 2 days - Review of Systems Events since last encounter: Patient stated she seemed to be doing better at this time. However patient does have some dyspnea with exertion. Patient continues to have a cough of some yellow to clear phlegm. Nohemophysis has been noted. Patient denies any chest pain or chest pressure. Patient states that she is not sleeping well despite given Ambien. Objective - Exam Vitals and I&O: Vital Signs Temp 98.7 F 12/05/17 10:26 Pulse 87 12/05/17 10:26 Resp 16 12/05/17 10:58 BP 102/60 12/05/17 10:26 Pulse Ox 90 L 12/05/17 10:57 Intake & Output 12/04/17 12/05/17 12/05/17 23:59 11:59 23:59 Intake Total 1490 530 Balance 1490 530 Intake: IV 690 10 Right Hand 10 left habd 690 Oral 800 520 Other: Voiding Method Toilet Toilet # Voids 1 3 - Results Results: Laboratory Results WBC Comment 13.81 thou/uL (4.00-12.00) H 12/03/17 06:35 RBC 4.44 mil/uL (3.90-5.20) 12/03/17 06:35 Hemoglobin (Send Out) 14.2 g/dL (11.5-16.0) 12/03/17 06:35 Hct (Send Out) 41.7 % (34.5-46.5) 12/03/17 06:35 MCV (Send Out) 93.9 fL (80.0-100.0) 12/03/17 06:35 MCH 32.0 pg (28.0-34.0) 12/03/17 06:35 MCHC (Send Out) 34.1 g/dL (30.0-36.0) 12/03/17 06:35 RDW Coeff of Flaquito 13.4 % (11.3-14.7) 12/03/17 06:35 Plt Count 241 thou/uL (130-400) 12/03/17 06:35 Absolute Lymphs (auto) 1.37 thou/uL (0.60-4.00) 12/03/17 06:35 Absolute Monos (auto) 0.43 thou/uL (0.00-0.90) 12/03/17 06:35 Absolute Basos (auto) 0.01 thou/uL (0.00-0.50) 12/03/17 06:35 Neutrophils % 86.5 % (39.0-79.0) H 12/03/17 06:35 Absolute Neutrophils 11.95 thou/uL (1.50-7.70) H 12/03/17 06:35 Lymphocytes 9.9 % (16.0-50.0) L 12/03/17 06:35 Monocytes 3.1 % (0.0-11.0) 12/03/17 06:35 Absolute Eosinophils 0.06 thou/uL (0.00-0.60) 12/03/17 06:35 Basophilia % 0.1 % (0.0-1.5) 12/03/17 06:35 Eosinophil Count 0.4 % (0.0-6.8) 12/03/17 06:35 PT 10.1 Seconds (9.4-11.6) 12/02/17 06:15 INR 0.96 (0.9-1.2) 12/02/17 06:15 Sodium 138 mmol/L (136-145) 12/03/17 06:35 Potassium 3.8 mmol/L (3.5-5.1) 12/03/17 06:35 Chloride 106 mmol/L (98-107) 12/03/17 06:35 Carbon Dioxide 23 mmol/L (22-30) 12/03/17 06:35 BUN 13 mg/dL (7-17) 12/03/17 06:35 Creatinine 0.50 mg/dL (0.52-1.04) L 12/03/17 06:35 Estimated Creat Clear 189 12/03/17 06:35 Est GFR ( Amer) > 60 (60-) 12/03/17 06:35 Est GFR (Non-Af Amer) > 60 (60-) 12/03/17 06:35 Glucose 159 mg/dL (74-106) H 12/03/17 06:35 Calcium 8.9 mg/dL (8.4-10.2) 12/03/17 06:35 Total Bilirubin 0.2 mg/dL (0.2-1.3) 12/03/17 06:35 AST 20 U/L (15-46) 12/03/17 06:35 ALT 31 U/L (13-69) 12/03/17 06:35 Alkaline Phosphatase 68 U/L (38-126) 12/03/17 06:35 Creatine Kinase 70 U/L (30-135) 12/02/17 06:15 NT-Pro-B Natriuret Pep 118.4 pg/mL (15.0-125.0) 12/02/17 06:15 Total Protein 6.5 g/dL (6.3-8.2) 12/03/17 06:35 Albumin 3.9 g/dL (3.5-5.0) 12/03/17 06:35 Assessment/Plan - Assessment/Plan (1) Acute exacerbation of COPD with asthma Status: Chronic Assessment: continue with present treatment (2) Insomnia Status: Chronic Assessment: patient started on melatonin (3) Tobacco dependence Status: Chronic (4) Depressive disorder Status: Chronic Assessment: stable (5) GERD without esophagitis Status: Chronic
== END 2017-12-05 11:25 | disposition home or self-care (01) | DRG 192 ==
LOC: ED 05:53 → SOUTH 07:46
PROVIDERS: ADMIT Family Medicine; ATTEND Family Medicine
DX: J44.1 Chronic obstructive pulmonary disease with (acute) exacerbation (principal); F17.210 Nicotine dependence, cigarettes, uncomplicated; G47.30 Sleep apnea, unspecified; G47.00 Insomnia, unspecified; F32.9 Major depressive disorder, single episode, unspecified; K21.9 Gastro-esophageal reflux disease without esophagitis; Z99.81 Dependence on supplemental oxygen
CPT/HCPCS: 71045; 80053; 82550; 83880; 85025; 85610; 93005; 94640; 94760; A9270; J0456; J1956; J2920; J2930; J7030; J7050; J7626; 96365; 99222; 99232; 99238; J1030; S1016

== ENCOUNTER 2017-12-19 16:20 | Outpatient (CLI) | payer OTHER | END 2017-12-19 16:23 | LOC: LABRHC 16:20 | PROVIDERS: ATTEND Physician Assistant | DX: R39.15 Urgency of urination (principal); M54.5 Low back pain | CPT/HCPCS: 87086 ==

== ENCOUNTER 2018-03-23 10:50 | Emergency (ER) | payer OTHER ==
--- NOTE | 2018-03-23 13:14 | Diagnostic Imaging Report ---
MARJ COPELAND [facility] [address] [facility] [address] [place], [place]. [address] Report Submission Date: Mar 23, 2018 12:29:24 PM INFORMATION SYSTEMS SECURITY DEVELOPER Patient Study Name: KALIN RUIZ Date: Mar 23, 2018 11:58:03 AM INFORMATION SYSTEMS SECURITY DEVELOPER Modality Type: DX Gender: F Description: CHEST,ABDOMEN : 48 Institution: [facility] Physician: MARJ COPELAND Abdomen series with chest History: Cough and right lower quadrant pain Findings: Prior films have not been provided for comparison. A single view of the chest reveals an indeterminate right upper lobe nodule and hyperinflation. Minimal bibasilar infiltrate or atelectasis may be present. A 2nd right basilar nodule cannot be excluded. Upright and supine abdominal radiographs reveal moderate colonic stool without bowel obstruction or free air. Lower lumbar spondylosis and tubal ligation clips are present. Small right pelvic calcifications are indeterminate. Impression: 1. Indeterminate right lung nodular opacities. Recommend standard contrast enhanced chest CT. 2. Moderate colonic stool. 3. Indeterminate right pelvic calcifications. Electronically signed on Mar 23, 2018 12:29:24 PM INFORMATION SYSTEMS SECURITY DEVELOPER by: Maurilio ROCHA
[2018-03-24 07:59] LABS: eGFR (Non-African) > 60
[2018-03-24 08:00] LABS: BASOPHILS % 0.7 (0.0-1.5); EOSINOPHILS % 1.7 % (0.0-6.8); MEAN CORPUSCULAR HEMOGLOBIN 30.7 pg (28.0-34.0); MONOCYTES % 4.4 % (0.0-11.0); NEUTROPHILS # 13.4 # k/uL (1.4-7.7)
== END 2018-03-23 13:08 | disposition home or self-care (01) ==
LOC: ED 10:50
DX: R10.9 Unspecified abdominal pain (principal)
CPT/HCPCS: 36415; 74022; 80053; 85025; 99283; 99284; S1016

== ENCOUNTER 2018-08-10 21:42 | Emergency (ER) | payer OTHER ==
[2018-08-10] MEDS ORDERED: LEVALBUTEROL NEB 1.25 MG/3 ML VIAL.NEB NEB ONE (21:55)
[2018-08-10] MEDS ORDERED: AZITHROMYCIN 250 MG TABLET PO ONE (21:55)
[2018-08-24 17:51] LABS: BASOPHILS % 0.7 % (0.0-1.5); NEUTROPHILS # 3.6 # k/uL (1.4-7.7); eGFR (Non-African) > 60
--- NOTE | 2018-08-29 16:21 | Diagnostic Imaging Report ---
KIM MEDINA (RETAIL PRICING COORDINATOR) - ER [facility] [address] [facility] [address] Report Submission Date: Aug 10, 2018 10:54:45 PM CDT Patient Study Name: KALIN RUIZ Date: Aug 10, 2018 10:27:39 PM CDT Modality Type: DX Gender: F Description: CHEST 2VIEW : 48 Institution: [facility] Physician: KIM MEDINA (RETAIL PRICING COORDINATOR) - ER PA and lateral chest History: Short of breath PA and lateral chest dated August 10, 2018 demonstrates a normal cardiomediastinal silhouette. Pulmonary vascularity is normal. Lungs are clear. Impression: No active disease. Electronically signed on Aug 10, 2018 10:54:45 PM CDT by: Addie ROCHA
== END 2018-08-10 23:37 | disposition home or self-care (01) ==
LOC: ED 21:42
DX: J44.1 Chronic obstructive pulmonary disease with (acute) exacerbation (principal)
CPT/HCPCS: 36415; 71020; 80053; 85025; 94640; 99283; 99284; J7614; S1016

== ENCOUNTER 2018-12-19 23:04 | Emergency (ER) | payer OTHER ==
[2018-12-19] MEDS: IPRATROPIUM/ALBUTEROL SULFATE 3 ML AMPUL.NEB NEB ONE ×2 (23:04)
--- NOTE | 2018-12-19 23:18 | ED Physician Documentation ---
General Adult - HISTORIAN Historian: patient - HPI Stated Complaint: shortness of air Chief Complaint: Dyspnea Onset: days ago (10) Timing: still present, worse Severity: moderate Further Comments: yes (She states she was taking zpack and prednisone and when she finished the antibitotic and started to taper the prednisone. She denies a fever. She states shortness of air and wheezing) - ROS CONST: recent illness - PAST HX Past History: asthma, COPD Immunizations: UTD Allergies/Adverse Reactions: Allergies Allergy/AdvReac Type Severity Reaction Status Date / Time olanzapine [From Zyprexa] Allergy Unknown Verified 12/02/17 06:49 Home Medications: Ambulatory Orders Medication Instructions Recorded Albuterol Sulfate [Proair Hfa] 2 inhalation IH Q 4-6 HRS PRN #1 03/05/13 each Citalopram Hydrobromide [CELEXA] 20 mg PO DAILY u2 03/05/13 Lovastatin 40 mg PO DAILY u2 03/05/13 Ranitidine HCl [Acid Tire Fabric Inspector] 150 mg PO DAILY 12/01/17 Melatonin 5 - 10 mg PO HS PRN #60 tablet 12/05/17 NICOTINE 14mg [HABITROL 14mg] 1 patch TD DAILY patch.td24 12/05/17 Prednisone 10 mg PO DIRECTED #36 tablet 12/05/17 levoFLOXacin [Levaquin] 500 mg PO D #7 tablet 12/05/17 - SOCIAL HX Smoking History: quit greater than 1 year Alcohol Use: none Drug Use: none - FAMILY HX Family History: No - VITAL SIGNS Vital Signs: Vital Signs Temp Pulse Resp BP Pulse Ox 102/60 12/05/17 10:26 - REVIEWED ASSESSMENTS Nursing Assessment Reviewed: Yes Vitals Reviewed: Yes Progress - Progress Progress: 2340: mild improvement in inspiratory intake - she reports some improvement in shortness of air DG 2350: decrease in wheezing mildly DG 0039: audible wheezing has resolved and wheezing is decreased. She is reporting she feels better. DG 0100: Denies any increased shortness of air. She is aware that she has her own oxygen at home and nebs - she is going to take the steroid daily and discuss with Ghada her CADDYMASTER DG ED Results Lab/Radiology - Radiology Radiology Impressions: AP chest Clinical history: Shortness of breath. Findings: Examination of the chest in single AP view with comparison to examination of 08/10/2018 demonstrates lungs to be hyperinflated. Cardiovascular and mediastinal silhouettes are stable. The aorta is atherosclerotic. There is mild prominence of bronchovascular markings likely related to the patient's size and age. Impression: 1. No active disease. Electronically signed on Dec 19, 2018 11:45:12 PM CDT by: Andrew Adam Orders Orders: ED Orders Category Date Time Status Ipratropium/Albuterol Sulfate [Duoneb] Med 12/19/18 23:04 Discontinued 6 ml NEB .STK-MED ONE General Adult Physical Exam - PHYSICAL EXAM GENERAL APPEARANCE: moderate distress EENT: eye inspection normal, ENT inspection normal, no signs of dehydration NECK: normal inspection RESPIRATORY: wheezes, rhonchi CVS: reg rate & rhythm, heart sounds normal ABDOMEN: soft, non-tender BACK: normal inspection, no CVA tenderness SKIN: warm/dry EXTREMITIES: non-tender NEURO: oriented X3 Discharge Clincal Impression: Acute exacerbation of COPD with asthma Referrals: Astrid Urrutia MD [Primary Care Provider] - 2 Days Comments: 1. Predisone 20 mg daily x 5 days 2. Call Ghada CADDYMASTER on first available day to discuss med changes 3. RETURN TO ER for any concerns Condition: Stable Disposition: 01 HOME, SELF-CARE Decision to Admit: NO Date of Decison to Admit: 12/20/18 Decision Time: 01:06
[2018-12-19] MEDS: methylPREDNISolone SOD SUCC 125 MG/2 ML VIAL IVP ONE (23:20)
[2018-12-20] MEDS: ALBUTEROL SULFATE 2.5 MG/3 ML AMPUL.NEB NEB ONE (00:52)
[2018-12-20] MEDS: predniSONE 20 MG TABLET PO ONE (01:15)
[2018-12-20 01:31] VITALS: BP 105/61
[2018-12-20 06:30] LABS: BASOPHILS % 0.6 % (0.0-1.5); NEUTROPHILS # 4.5 # k/uL (1.4-7.7)
[2018-12-20 06:31] LABS: eGFR (Non-African) > 60
== END 2018-12-20 01:20 | disposition home or self-care (01) ==
LOC: ED 23:04
DX: J44.1 Chronic obstructive pulmonary disease with (acute) exacerbation (principal)
CPT/HCPCS: 71045; 80053; 83880; 85025; 87040; 93005; 94640; 96374; 99283; J2930; S1016

== ENCOUNTER 2019-02-28 18:34 | Emergency (ER) | payer OTHER ==
--- NOTE | 2019-02-28 18:53 | ED Physician Documentation ---
General Adult - HISTORIAN Historian: patient - HPI Chief Complaint: General Adult (Weakness) Additional Information: 68 year old female presents with c/o weakness; states that she had chills yesterday; little shortness of breath with a productive cough with green sputum. She denies any fever that she is aware of; no n/v/d. She did a breathing treatment prior to arrival; has steroids at home that she is to start using if she has an Exac of COPD; she did not take steroid because she was not sure if that is what it was; states that she has been eating and drinking; she is current of flu and pneumonia vaccine. Onset: days ago (Yesterday) Timing: still present Severity: mild Modifying Factors: COPD - ROS CONST: weakness EYES/ENT: none CVS/RESP: cough GI/: none MS/SKIN/LYMPH: none - PAST HX Past History: COPD Surgeries/Procedures: BTL, other (appy.) Immunizations: influenza, pneumovax, UTD Allergies/Adverse Reactions: Allergies Allergy/AdvReac Type Severity Reaction Status Date / Time olanzapine [From Zyprexa] Allergy Unknown Verified 02/28/19 18:55 Home Medications: Ambulatory Orders Medication Instructions Recorded Albuterol Sulfate [Proair Hfa] 2 inhalation IH Q 4-6 HRS PRN #1 03/05/13 each Citalopram Hydrobromide [CELEXA] 20 mg PO DAILY u2 03/05/13 Lovastatin 40 mg PO DAILY u2 03/05/13 Ranitidine HCl [Acid Rn Neurology] 150 mg PO DAILY 12/01/17 Melatonin 5 - 10 mg PO HS PRN #60 tablet 12/05/17 Prednisone 10 mg PO DIRECTED #36 tablet 12/05/17 - SOCIAL HX Smoking History: quit greater than 1 year Alcohol Use: none Drug Use: none - FAMILY HX Family History: No - VITAL SIGNS Vital Signs: Vital Signs Temp Pulse Resp BP Pulse Ox 105/61 12/20/18 01:13 - REVIEWED ASSESSMENTS Nursing Assessment Reviewed: Yes Vitals Reviewed: Yes ED Results Lab/Radiology - Radiology Radiology Impressions: Examination: PA and lateral chest. History: Evaluate lung lal. Comparison exam: 19 December 2018 Findings: PA and lateral views of the chest demonstrates a normal cardiac and mediastinal silhouette. Chronic interstitial changes. Basilar scarring. No blunting of the costophrenic margins. Osseous structures are appropriate for age. Impression: Chronic interstitial changes. No acute appearing pulmonary process. Electronically signed on Feb 28, 2019 7:43:34 PM BABY REGISTRY SALES CONSULTANT by: Maxx Estrada General Adult Physical Exam - PHYSICAL EXAM GENERAL APPEARANCE: mild distress EENT: eye inspection normal, ENT inspection normal, pharynx normal, SABINA, TM's nml NECK: normal inspection, supple RESPIRATORY: no resp distress, chest non-tender, breath sounds normal CVS: heart sounds normal, tachycardia (98) ABDOMEN: soft, normal bowel sounds SKIN: warm/dry, normal color EXTREMITIES: non-tender, normal range of motion NEURO: oriented X3, CN's nml as tested, motor nml, sensation nml, mood/affect nml, cognition normal Discharge Clincal Impression: Upper respiratory infection with cough and congestion Referrals: Astrid Urrutia MD [Primary Care Provider] - 2 Days Additional Instructions: Start antibiotic on 03/01/19 (Levaquin 500 mg by mouth daily- 1st dose given in ER) Push fluids; > 64oz of water Use humidifier Blood sugar was elevated; discuss with PCP Follow up with PCP for re-evaluation in one week Condition: Good Disposition: 01 HOME, SELF-CARE Decision to Admit: NO Decision Time: 23:00
--- NOTE | 2019-02-28 19:48 | Diagnostic Imaging Report ---
PATIENT MR#: [id number] PATIENT PATIENT NAME: KALIN RUIZ DATE OF : 1950 REFERRING PHYSICIAN: Marifer Whyte EXAM DATE: 02/28/2019 ACCESSION NUMBER: [id number] EXAM DESCRIPTION: CHEST 2VIEW Examination: PA and lateral chest. History: Evaluate lung lal. Comparison exam: 19 December 2018 Findings: PA and lateral views of the chest demonstrates a normal cardiac and mediastinal silhouette. Chronic interstitial changes. Basilar scarring. No blunting of the costophrenic margins. Osseous structures are appropriate for age. Impression: Chronic interstitial changes. No acute appearing pulmonary process. Read by: Dr. Maxx Estrada Transcribed by: Transcribed Date: Electronically signed by: Dr. Maxx Estrada Date signed: 02/28/2019 7:47:28 PM
[2019-02-28] MEDS: LevoFLOXacin 500 MG TABLET PO ONE (19:57)
[2019-02-28 20:03] VITALS: BP 114/57
[2019-03-01 07:26] LABS: eGFR (Non-African) > 60
[2019-03-01 07:28] LABS: BASOPHILS % 0.7 % (0.0-1.5); NEUTROPHILS # 9.6 # k/uL (1.4-7.7)
== END 2019-02-28 20:03 | disposition home or self-care (01) ==
LOC: ED 18:34
DX: J06.9 Acute upper respiratory infection, unspecified (principal); F17.210 Nicotine dependence, cigarettes, uncomplicated
CPT/HCPCS: 80053; 85025; 99282; 99283; S1016